=== PATIENT | female | born 1985 | race Caucasian/White ===

== ENCOUNTER 2017-05-18 06:09 | Inpatient (IN) | payer BC, SELFPAY ==
[2017-05-18] MEDS ORDERED: Lactated Ringers 1,000 ML IV ONE (09:50)
[2017-05-18] MEDS ORDERED: Morphine PF 10 MG/10 ML SDV ONE (10:10)
[2017-05-18] MEDS ORDERED: fentaNYL 100 MCG/2 ML SDV ITHECAL ONE (10:10)
[2017-05-18] MEDS ORDERED: Scopolamine 1.5 MG Transdermal Patch TRDERM PRN (10:12)
[2017-05-18] MEDS ORDERED: Scopolamine 1.5 MG Transdermal Patch ONE (10:15)
[2017-05-18] MEDS ORDERED: Lactated Ringers 1,000 ML IV SCH (10:15)
[2017-05-18] MEDS ORDERED: Ondansetron 4 MG/2 ML SDV IVPUSH PRN (10:46)
[2017-05-18] MEDS ORDERED: diphenhydrAMINE 50 MG/ML SDV IVPUSH PRN (10:46)
[2017-05-18] MEDS ORDERED: Promethazine 6.25 MG in Sodium Chloride 0.9% 50 ML IV PRN (10:46)
[2017-05-18] MEDS ORDERED: Naloxone 0.4 MG/ML SDV IVPUSH PRN (10:46)
[2017-05-18] MEDS ORDERED: Nalbuphine 10 MG/1 ML Vial IVPUSH PRN (10:46)
[2017-05-18] MEDS ORDERED: Naltrexone 50 MG Tab PO PRN (10:46)
[2017-05-18] MEDS ORDERED: Famotidine/Normal Saline 20 MG in Premix Bag 1 BAG IV PRN (10:46)
[2017-05-18] MEDS ORDERED: Promethazine 12.5 MG in Sodium Chloride 0.9% 50 ML IV PRN (10:46)
[2017-05-18] MEDS ORDERED: Scopolamine 1.5 MG Transdermal Patch TOP ONE (10:46)
[2017-05-18] MEDS ORDERED: ePHEDrine 50 MG/ML SDV IVPUSH PRN (10:46)
[2017-05-18] MEDS ORDERED: diphenhydrAMINE 50 MG/ML SDV IV PRN (10:46)
[2017-05-18] MEDS ORDERED: Lactated Ringers 500 ML IV SCH ×2 (11:00)
[2017-05-18] MEDS ORDERED: Oxytocin 10 Units/1 ML SDV IM ONE (12:00)
[2017-05-18] MEDS ORDERED: Acetaminophen/Codeine 300-30 MG Tab PO PRN (12:36)
[2017-05-18] MEDS ORDERED: Sodium Chloride 0.9% 10 ML Syringe FLUSH PRN (12:36)
[2017-05-18] MEDS: Ibuprofen 600 MG Tab PO PRN ×2 (15:30→21:56)
[2017-05-18] MEDS: Docusate Sodium 100 MG Cap PO SCH (21:59)
[2017-05-19] MEDS: Ibuprofen 600 MG Tab PO PRN ×2 (07:49→15:56)
--- NOTE | 2017-05-19 08:06 | DEL ---
DATE OF DELIVERY: 05/18/2017 HISTORY OF PRESENT ILLNESS: Rachana Campos is a 31-year-old, 3, para 2-0- 0-1 female, admitted to [facility] in active early labor. She has been philly off and on for the last 12+ hours. Intermittently for the last week. It has been a very successful, unremarkable without complicating issues. Group B rectovaginal culture negative. PHYSICAL EXAMINATION: She was found to have regular contractions 2-3 cm dilatation, 0 to +1 station, mid to posterior position. Cervix, 80% effaced. Satisfactory well being with category 1 monitor pattern. She elected to proceed with augmentation of delivery. Amniotomy was performed with clear fluid. Labor progressed well at 5 cm. Intrathecal was placed with good analgesic benefit, went quickly to complete and I was asked to attend. She was prepped and draped in usual fashion, found to be in MIRTA presentation. Two good quality pushes delivered with a protected perineum, no episiotomy, 6 pounds 3 ounce female , scores 9 and 9. Both nares and oropharynx were suctioned aggressively. Nuchal cord delivered without shoulder dystocia, Ayana position. Child had a lusty cry, was placed on mom's tummy for warming and resuscitation. Cord was palpated until absence with a palpable pulse, cord was doubly clamped and cut by dad in attendance. Cord blood was obtained. There was spontaneous placental separation intact by observation. 10 units of Pitocin was given IM. It should be noted there were fluids given prior to intrathecal and during the labor process. Perineum was inspected. A small second degree tear present. Infiltrated with lidocaine and repaired in complex fashion with 2-0 chromic suture. There is also a left upper labial tear just lateral to the clitoris. Was infiltrated with lidocaine and repaired with interrupted sutures with good anatomical position, 4-0 Vicryl suture. Blood loss 100 mL. Mom was well at the time of completion of the 3rd stage of labor. ASSESSMENT: 1. Term intrauterine at 38 weeks and 6 days gestation. 2. Spontaneous labor with amniotomy. 3. Intrathecal analgesia. 4. 6 pounds 3 ounce female , scores 9 and 9. 5. No episiotomy. Left upper labial periclitoral tear, small second degree perineal tear. 6. Nursing nutrition. PLAN: Routine course. Expect no problems or concerns. Proceed accordingly. /[id number] KATE/THOMAS GARCIA
--- NOTE | 2017-05-19 08:34 | PN ---
DATE SEEN: 05/19/2017 SUBJECTIVE: Rachana Campos is a 31-year-old, 3 female, 1 day . Side effects from the scopolamine patch are only wearing off. The patient's primary issue out of body experience is improving. She is otherwise doing well. hemoglobin pending. OBJECTIVE: VITAL SIGNS: 36.6; 62; 130/68, mean of 88; respirations 16; O2 saturation 99%. NECK: Benign. Thyroid: Small. CHEST: Clear in all lung wells. BREASTS: Without masses. ABDOMEN: U-3. day 1, no problems. PLAN: Hemoglobin pending. We will plan discharge this evening, complementary care, and well being. Routine care in the meantime. /[id number] KATE/THOMAS
[2017-05-19] MEDS: Docusate Sodium 100 MG Cap PO SCH (08:42)
[2017-05-19] MEDS ORDERED: Ondansetron 4 MG Tab.DIS PO PRN (10:05)
[2017-05-19 10:36] VITALS: BP 111/76
== END 2017-05-19 18:45 | disposition home or self-care (01) | DRG 560 ==
LOC: FB.OBCHECK 06:09 → FB.OB 06:09 → FB.OBCHECK 06:29 → FB.OB 06:31 → FB.OBCHECK 08:01 → FB.OB 08:01 → UNDOADMIN 08:02 → FB.OB 08:02
PROVIDERS: ADMIT Family Medicine; ATTEND Family Medicine
PROC: 10E0XZZ Delivery of Products of Conception, External Approach (ICD-10-PCS; principal; 2017-05-18)
PROC: 10907ZC Drainage of Amniotic Fluid, Therapeutic from Products of Conception, Via Natural or Artificial Opening (ICD-10-PCS; 2017-05-18)
PROC: 0KQM0ZZ Repair Perineum Muscle, Open Approach (ICD-10-PCS; 2017-05-18)
PROC: 0UQMXZZ Repair Vulva, External Approach (ICD-10-PCS; 2017-05-18)
PROC: 00HU33Z Insertion of Infusion Device into Spinal Canal, Percutaneous Approach (ICD-10-PCS; 2017-05-18)
DX: O70.1 Second degree perineal laceration during delivery (principal); Z3A.38 38 weeks gestation of pregnancy; Z37.0 Single live birth; O70.0 First degree perineal laceration during delivery
CPT/HCPCS: 36415; 85014; 85018; 99211; A9270-GY; J2270; J2590; J3010; J7050; J7120